=== PATIENT | male | born 1995 | race Caucasian/White ===

== ENCOUNTER 2018-06-17 13:36 | Emergency (ER) | payer MEDICAID ==
[~2018-06-17] VITALS: Ht 175.3 cm; Wt 72.7 kg
[2018-06-17 13:41] VITALS: Ht 175.3 cm; Wt 72.7 kg
[2018-06-17 14:50] VITALS: BP 124/75
== END 2018-06-17 14:51 | disposition home or self-care (01) ==
LOC: D.ER 13:36
DX: S67.41XA Crushing injury of right wrist and hand, initial encounter (principal); S67.10XA Crushing injury of unspecified finger(s), initial encounter; W23.0XXA Caught, crushed, jammed, or pinched between moving objects, initial encounter; Y93.89 Activity, other specified; Y92.89 Other specified places as the place of occurrence of the external cause

== ENCOUNTER 2018-06-23 16:15 | Emergency (ER) | payer MEDICAID ==
[~2018-06-23] VITALS: Ht 175.3 cm; Wt 72.7 kg
[2018-06-23 16:28] VITALS: Ht 175.3 cm; Wt 72.7 kg
[2018-06-23] MEDS ORDERED: ZITHROMAX250 MG PO (16:30)
[2018-06-23] MEDS ORDERED: PHENERGAN25 M1 PO (16:30)
[2018-06-23] MEDS ORDERED: FLUTICASONE PRO16 GM NASAL (16:30)
[2018-06-23 17:06] LABS: BASOPHILS 0.4 % (0-2); EOSINOPHILS 4.8 % (0-7); HEMATOCRIT 50.4 % (42.0-54.0); HEMOGLOBIN 17.7 g/dL (13.5-17.5); IMMATURE GRANULOCYTES 0.4 % (0-5); LYMPHOCYTES 27.3 % (15-50); MCH 31.4 pg (26.0-34.0); MCHC 35.1 g/dL (31.0-37.0); MCV 89.4 fL (80.0-100.0); MEAN PLATELET VOLUME 9.6 fL (7.4-10.4); MONOCYTES 9.5 % (2-11); NEUTROPHILS 57.6 % (40-80); PLATELET COUNT 292 10x3/uL (130-400); RBC 5.64 10x6/uL (4.20-6.10); RDW 12.7 % (11.5-14.5); WBC 10.1 10x3/uL (4.8-10.8)
[2018-06-23 17:15] LABS: APPEARANCE CLEAR (CLEAR); BILIRUBIN NEGATIVE (NEGATIVE); COLOR YELLOW (YELLOW); GLUCOSE NEGATIVE (NEGATIVE); KETONE NEGATIVE (NEGATIVE); NITRITE NEGATIVE (NEGATIVE); PROTEIN TRACE mg/dL (NEGATIVE)
[2018-06-23 17:17] LABS: ALBUMIN 4.2 g/dL (3.4-5.0); ALKALINE PHOSPHATASE 72 U/L (46-116); ALT (SGPT) 42 U/L (10-68); AMYLASE - SERUM 70 U/L (25-115); BILIRUBIN - TOTAL 0.62 mg/dL (0.2-1.3); CALC OSMOLALITY 281 mosm/kg (275-300); CALCIUM 8.8 mg/dL (8.5-10.1); CHLORIDE - SERUM 103 mmol/L (98-107); CREATININE - SERUM 1.2 mg/dL (0.6-1.3); GLUCOSE 99 mg/dL (74-106); LIPASE 109 U/L (73-393); POTASSIUM - SERUM 3.8 mmol/L (3.5-5.1); PROTEIN - SERUM 7.6 g/dL (6.4-8.2); SODIUM 141 mmol/L (136-145); UREA NITROGEN 16 mg/dL (7-18); eGFR NON AFRICAN AMERICAN 80 mL/min (90-120)
[2018-06-23 17:17] LABS: AMORPHOUS SEDIMENT <1+ /lpf (NONE SEEN); MUCUS <1+ /lpf (NONE SEEN)
[2018-06-23 19:59] LABS: ERYTHROCYTE SEDIMENTATION RATE 0 mm/hr (0-15)
[2018-06-23] MEDS ORDERED: ZOFRAN8 MG PO (20:46)
[2018-06-23 21:01] VITALS: BP 121/74
== END 2018-06-23 21:01 | disposition home or self-care (01) ==
LOC: D.ER 16:15
PROVIDERS: Family Medicine
DX: R10.32 Left lower quadrant pain (principal); R10.31 Right lower quadrant pain

== ENCOUNTER 2018-08-13 22:44 | Emergency (ER) | payer MEDICAID ==
[~2018-08-13] VITALS: Ht 175.3 cm; Wt 72.7 kg
[~2018-08-13 22:44] MED LIST: FLUTICASONE PRO16 GM NASAL; PHENERGAN25 M1 PO; ZITHROMAX250 MG PO; ZOFRAN8 MG PO
[2018-08-13 23:06] VITALS: Ht 175.3 cm; Wt 72.7 kg
[2018-08-14] MEDS ORDERED: ERYTHROMYCIN OPT1 GM EACH EYE (00:57)
[2018-08-14 01:54] VITALS: BP 133/74
== END 2018-08-14 01:54 | disposition home or self-care (01) ==
LOC: D.ER 22:44
DX: H18.893 Other specified disorders of cornea, bilateral (principal); T65.891A Toxic effect of other specified substances, accidental (unintentional), initial encounter; Y92.89 Other specified places as the place of occurrence of the external cause